=== PATIENT | female | born 1950 | race Caucasian/White ===

== ENCOUNTER → 2018-01-14 07:56 | Outpatient (CLI) | payer MEDICARE, BC, SELFPAY ==
[2018-01-14 10:37] LABS: Hemoglobin A1c 5.4 % (4.2-6.3)
[2018-01-14 10:42] LABS: Anion Gap 11 (5-15); BUN 19 mg/dL (7-18); Calcium,Total 9.4 mg/dL (8.5-10.1); Chloride 103 mmol/L (98-107); Cholesterol 213 mg/dL (200); EST Glomerular Filtration Rate 59 mL/min (>60); Est Glom Filt Rate - Afr Amer 71 mL/min (>60); Glucose 87 mg/dL (74-106); High Density Lipoprotein 42 mg/dL; Potassium 3.8 mmol/L (3.5-5.1); Sodium Level 139 mmol/L (136-145); Triglycerides 86 mg/dL; Very Low Density Lipoprotein 17 mg/dL (5-40)
== END ==
PROVIDERS: Family Provider Family Medicine; PCP Family Medicine; Visit Provider Family Medicine
DX: R73.03 Prediabetes (principal); E78.00 Pure hypercholesterolemia, unspecified
CPT/HCPCS: 36415; 80048; 80061; 83036

== ENCOUNTER → 2018-10-27 | Outpatient (CLI) | payer MEDICARE, BC, SELFPAY ==
[2018-10-27 10:19] LABS: Hemoglobin A1c 5.1 % (4.2-6.3)
[2018-10-27 10:27] LABS: Anion Gap 8 (5-15); BUN 21 mg/dL (7-18); BUN/Creat Ratio 28.2 RATIO (10-20); Chloride 105 mmol/L (98-107); Cholesterol 195 mg/dL (200); Creatinine, Serum 0.74 mg/dL (0.55-1.02); EST Glomerular Filtration Rate 82 mL/min (>60); Est Glom Filt Rate - Afr Amer 100 mL/min (>60); Glucose 81 mg/dL (74-106); High Density Lipoprotein 48 mg/dL; Potassium 4.3 mmol/L (3.5-5.1); Sodium Level 143 mmol/L (136-145); Triglycerides 70 mg/dL; Very Low Density Lipoprotein 14 mg/dL (5-40)
== END | disposition home or self-care (01) ==
LOC: MFPLAB 08:12
PROVIDERS: Family Provider Family Medicine; PCP Family Medicine; Referring Provider Family Medicine; Visit Provider Family Medicine
DX: E78.00 Pure hypercholesterolemia, unspecified (principal); R73.03 Prediabetes
CPT/HCPCS: 36415; 80048; 80061; 83036

== ENCOUNTER 2019-01-13 21:33 | Emergency (ER) | payer MEDICARE, BC, SELFPAY ==
[2019-01-13 21:34] VITALS: BP 142/91; PULSE 61; RESP 18; TEMP 37; O2SAT 99; BMI 29.0
--- NOTE | 2019-01-13 21:50 | EKG12_ITS ---
Test Reason : REPEAT CP Blood Pressure : / mmHG Vent. Rate : 054 BPM Atrial Rate : 054 BPM P-R Int : 172 ms QRS Dur : 084 ms QT Int : 468 ms P-R-T Axes : 045 -37 043 degrees QTc Int : 443 ms Sinus bradycardia Left axis deviation Abnormal ECG Confirmed by JOSEF FLOREZ ([id number]), multimedia editor THIAGO RANKIN ([id number]) on 01/18/2019 10:22:17 AM Referred By: SY Confirmed By:JOSEF FLOREZ
--- NOTE | 2019-01-13 21:50 | RAD_ITS ---
STUDY: X-RAY CHEST REASON FOR EXAM: Female, 68 years old. Chest pain TECHNIQUE: AP portable COMPARISON: March 20, 2011. FINDINGS: The lungs are clear and expanded. There is no demonstrated pleural abnormality. Normal size heart. Normal mediastinum and estefanía. Normal visualized pulmonary arteries. Normal visualized aortic arch and descending thoracic aorta. Normal visualized thoracic spine. Normal visualized ribs, clavicles, and shoulders. There is no demonstrated abnormality of the visualized soft tissue structures of the upper abdomen. RAD/Chest 1 View (Portable) IMPRESSION: Normal x-ray examination of the chest. Electronically Signed: Trung Palacio MD at 22:08 EDT , Service support ,
[2019-01-13 21:56] LABS: Absolute Lymphocyte Count 4.26 X10^3/uL (0.83-4.51); Absolute Neutrophil Count 3.5 X10^3/uL (2.0-7.7); Basophil# 0.08 X10^3/uL; Basophil% 0.9 % (0-1); Eosinophil# 0.32 X10^3/uL; Eosinophils% 3.6 % (0-5); Hematocrit 36.9 % (37-47); Hemoglobin 12.1 g/dL (12.0-15.0); Lymphocyte # 4.26 X10^3/ul (4.0); Mean Corp Hgb Conc 32.8 g/dL (32-36); Mean Corpuscular Hgb 27.6 pg (27.0-32.0); Mean Corpuscular Volume 84.2 fL (81-99); Mean Platelet Vol. 9.8 fl (6.2-12.0); Monocyte% 7.9 % (0-10); NRBC Flagged by Analyzer 0 % (0-5); Neutrophil # 3.49 X10^3/uL (2.7-7.7); Neutrophil % 39.4 % (47-70); Platelet Count 247 K/mm3 (150-450); RBC Distribution Width CV 12.2 % (11.6-14.6); Red Blood Count 4.38 M/mm3 (4.2-5.4); White Blood Count 8.9 K/mm3 (4.4-11.0)
[2019-01-13 22:12] LABS: Anion Gap 5 (5-15); BUN 29 mg/dL (7-18); BUN/Creat Ratio 31.2 RATIO (10-20); Chloride 103 mmol/L (98-107); Creatinine, Serum 0.93 mg/dL (0.55-1.02); EST Glomerular Filtration Rate 64 mL/min (>60); Est Glom Filt Rate - Afr Amer 77 mL/min (>60); Glucose 119 mg/dL (74-106); Sodium Level 138 mmol/L (136-145)
[2019-01-13 22:48] LABS: D-Dimer Quantitative (DVT/PE) 0.52 FEU/ug/m (0.27-0.49)
--- NOTE | 2019-01-13 22:50 | ED.RN ---
lab called with critical lab results. d dimer 0.52. Dr. Daley made aware no new orders at this time
[2019-01-13 23:26] VITALS: BP 135/86; PULSE 57; RESP 16; O2SAT 98
[2019-01-13] MEDS: 0.9% Normal Saline 1,000 ML 150 ML IV (23:26)
--- NOTE | 2019-01-13 23:44 | ED.DCSUM_ITS ---
History of Present Illness Chief Complaint: Chest Pain Informant: Patient Onset: Today Context: Gradual Onset Current Severity: - - Resolved Maximum Severity: Moderate Narrative: Patient presents with chest pain that lasted for approximate hour and a half. She was sitting at rest watching television when she started to get chest pressure. She states that encompass the entire anterior chest and she felt short of breath. It did not radiate to her back, neck, jaw, or arms. She tried Gas-X without improvement stating that she had had some reflux type symptoms all day. She took 2 baby aspirin with no relief and called EMS. EMS gave her 2 additional baby aspirin and her pain resolved. She was pain-free on arrival to the emergency room. Patient denies personal history of cardiac disease. Her last stress test was 8 years ago. She also had cardiac calcium scoring done in November of this year with a very low score in only the LAD. She has not noted a recent decrease in activity tolerance. - Past Medical History (1) Depression Status: Chronic Past Medical History - Allergies and Home Meds Allergies/Adverse Reactions: Allergies No Known Allergies Allergy (Verified 10/27/18 10:44) Primary Care Physician: Bradley Pedroza MD [Primary Care Provider] - Prior records reviewed: Yes Past Medical History: - - Reviewed Surgical History: surgery Lives: Spouse/ Significant Other Smoking Status: Never smoker Review of Systems General: Denies: Chills, Fever Eyes: Denies: Visual changes - bilaterally ENT: Denies: Bilateral ear pain Cardiovascular: Reports: Chest pain. Denies: Palpitations, Heart racing Respiratory: Reports: Dyspnea. Denies: Cough, Sputum Gastrointestinal: Denies: Abdominal pain, Nausea, Vomiting, Diarrhea Musculoskeletal: Denies: Myalgias, Back pain Skin: Denies: Rash Neurological: Denies: Headache Hematologic: Denies: Easy bruising Allergy: Denies: Uticaria Physical Exam Vital Signs/Narrative: Vital Signs Temp Pulse Resp BP Pulse Ox 01/13/19 23:26 57 L 16 135/86 H 98 01/13/19 21:34 98.6 F 61 18 142/91 H 99 Inital Vital Signs reviewed: Yes General: Well nourished, Well developed Head: Normocephalic Eyes: Perrl, EOMI ENT: Moist mucous membranes Neck: Supple Cardiovascular: Regular rate, Regular rhythm Respiratory: No distress, CTA bilaterally, Chest nontender Abdomen: Soft, Nontender Back: Nontender Extremities: Nontender, No edema Skin: Normal color, No rash Neurological: Alert, Oriented x3 Psychological: Normal affect Diagnostic/Tx/Re-eval Impressions Chest X-Ray 01/13/19 21:50 IMPRESSION: Normal x-ray examination of the chest. Electronically Signed: Trung Palacio MD at 22:08 EDT , Service support , 01/13/19 21:50 Chest 1 View (Portable) [RAD] Stat Laboratory Results 01/13/19 01/13/19 01/13/19 21:45 21:45 21:45 WBC 8.9 RBC 4.38 Hgb 12.1 Hct 36.9 L MCV 84.2 MCH 27.6 MCHC 32.8 RDW Std Deviation 37.0 RDW Coeff of Rebel 12.2 Plt Count 247 MPV 9.8 Immature Gran % (Auto) 0.200 Neut % (Auto) 39.4 L Lymph % (Auto) 48.0 H [place] % (Auto) 7.9 Eos % (Auto) 3.6 Baso % (Auto) 0.9 Absolute Neuts (auto) 3.5 Absolute Lymphs (auto) 4.26 Nucleated RBC % 0 D-Dimer Quant (PE/DVT) 0.52 H* Sodium 138 Potassium 4.0 Chloride 103 Carbon Dioxide 30.0 Anion Gap 5 BUN 29 H Creatinine 0.93 Estim Creat Clear Calc 52.10 Est GFR (MDRD) Af Amer 77 Est GFR (MDRD) Non-Af 64 BUN/Creatinine Ratio 31.2 H Glucose 119 H Calcium 9.0 Troponin I < 0.015 - EKG Initial EKG Interpretation: Sinus Rhythm - Sinus at 60 with no acute ischemia. - Medical Decision Making She received aspirin prior to arrival. She is had no recurrent chest pain while here. Initial enzymes are negative, but this blood work is drawn only 2 hours after the onset of her symptoms. Patient does not want to stay in the hospital overnight. We have compromised and agreed to do a 3-hour repeat EKG and blood work. If this is negative she will be discharged to home. ED Disposition - Plan for ED Patient: Referrals: Bradley Pedroza MD [Primary Care Provider] -
[2019-01-14 00:03] VITALS: BP 133/83; PULSE 53; RESP 16; O2SAT 98
--- NOTE | 2019-01-14 00:45 | EKG12_ITS ---
Test Reason : CP Blood Pressure : / mmHG Vent. Rate : 060 BPM Atrial Rate : 060 BPM P-R Int : 174 ms QRS Dur : 092 ms QT Int : 434 ms P-R-T Axes : 048 -38 055 degrees QTc Int : 434 ms Normal sinus rhythm Left axis deviation Abnormal ECG Confirmed by BILLY FISHMAN, DIEUDONNE ([id number]), purchasing expeditor THIAGO RANKIN ([id number]) on 01/18/2019 10:33:10 AM Referred By: SY Confirmed By:RBITTNI CERVANTES MD
--- NOTE | 2019-01-14 01:20 | ED.DCSUM_ITS ---
History of Present Illness Chief Complaint: Chest Pain Informant: Patient Past Medical History - Allergies and Home Meds Allergies/Adverse Reactions: Allergies No Known Allergies Allergy (Verified 10/27/18 10:44) Primary Care Physician: Bradley Pedroza MD [Primary Care Provider] - Surgical History: surgery Lives: Spouse/ Significant Other Smoking Status: Never smoker Physical Exam Vital Signs/Narrative: Vital Signs Temp Pulse Resp BP Pulse Ox 01/14/19 00:03 53 L 16 133/83 H 98 01/13/19 23:26 57 L 16 135/86 H 98 01/13/19 21:34 98.6 F 61 18 142/91 H 99 Diagnostic/Tx/Re-eval Abnormal Lab Results 01/13/19 01/13/19 01/13/19 21:45 21:45 21:45 WBC 8.9 RBC 4.38 Hgb 12.1 Hct 36.9 L MCV 84.2 MCH 27.6 MCHC 32.8 RDW Std Deviation 37.0 RDW Coeff of Rebel 12.2 Plt Count 247 MPV 9.8 Immature Gran % (Auto) 0.200 Neut % (Auto) 39.4 L Lymph % (Auto) 48.0 H [place] % (Auto) 7.9 Eos % (Auto) 3.6 Baso % (Auto) 0.9 Absolute Neuts (auto) 3.5 Absolute Lymphs (auto) 4.26 Nucleated RBC % 0 D-Dimer Quant (PE/DVT) 0.52 H* Sodium 138 Potassium 4.0 Chloride 103 Carbon Dioxide 30.0 Anion Gap 5 BUN 29 H Creatinine 0.93 Estim Creat Clear Calc 52.10 Est GFR (MDRD) Af Amer 77 Est GFR (MDRD) Non-Af 64 BUN/Creatinine Ratio 31.2 H Glucose 119 H Calcium 9.0 Troponin I < 0.015 01/14/19 00:36 WBC RBC Hgb Hct MCV MCH MCHC RDW Std Deviation RDW Coeff of Rebel Plt Count MPV Immature Gran % (Auto) Neut % (Auto) Lymph % (Auto) [place] % (Auto) Eos % (Auto) Baso % (Auto) Absolute Neuts (auto) Absolute Lymphs (auto) Nucleated RBC % D-Dimer Quant (PE/DVT) Sodium Potassium Chloride Carbon Dioxide Anion Gap BUN Creatinine Estim Creat Clear Calc Est GFR (MDRD) Af Amer Est GFR (MDRD) Non-Af BUN/Creatinine Ratio Glucose Calcium Troponin I < 0.015 - Medical Decision Making Patient signed out to me follow-up on repeat troponin. Results negative, repeat EKG unchanged sinus rate of 54 with no acute changes. Left axis deviation. Patient remains symptom-free. D-dimer was negative for age-adjusted. She will follow-up with outpatient physicians for further testing as needed. Signs and symptoms discussed return. All questions answered. ED Disposition - Plan for ED Patient: Disposition: Home or Assisted Living Diagnosis: Chest pain Instructions: CHEST PAIN, Uncertain Cause Referrals: Bradley Pedroza MD [Primary Care Provider] - Ray Abbasi MD [STAFF PHYSICIAN] - 3-5 Days
[2019-01-14 01:28] VITALS: BP 142/83; PULSE 53; RESP 18; O2SAT 99
== END 2019-01-14 01:29 | disposition home or self-care (01) ==
PROVIDERS: Emergency Provider Emergency Medicine; Family Provider Family Medicine; PCP Family Medicine
DX: R07.89 Other chest pain (principal); F32.9 Major depressive disorder, single episode, unspecified; Z79.899 Other long term (current) drug therapy
CPT/HCPCS: 71045; 80048; 84484; 85025; 85379; 93005; 96360; 96361; 99285; J7030; A4216

== ENCOUNTER → 2020-11-30 10:57 | Outpatient (CLI) | payer MEDICARE, BC, SELFPAY ==
[2019-02-10 13:18] VITALS: BMI 28.1
== END ==
PROVIDERS: PCP Family Medicine; Visit Provider Family Medicine
DX: B34.9 Viral infection, unspecified (principal)
CPT/HCPCS: 87426; 87633; 87635; U0005; U0003

== ENCOUNTER → 2021-03-18 07:57 | Outpatient (CLI) | payer MEDICARE, BC, SELFPAY ==
[2019-02-10 13:18] VITALS: BMI 28.1
--- NOTE | 2021-03-18 08:01 | CT_ITS ---
STUDY: CT SCAN LOWER EXTREMITY LEFT REASON FOR EXAM: Female, 71 years old. PRE OP.[facility] protocol. RADIATION DOSAGE (If Supplied By Facility): CTDIvol = ( 26.98 ) mGy, DLP = ( 1618.63 ) mGycm. Individualized dose optimization techniques were used for this CT.? TECHNIQUE: Multiple axial tomographic images of the left hip joint, left knee joint and left ankle joint were obtained. Coronal and sagittal reconstruction was obtained as well. COMPARISON: None. FINDINGS: Imaging of the left hip joint was obtained. No significant abnormality is seen. Imaging of the left knee joint was obtained. Moderate to marked degree of joint space narrowing involving the medial compartment of the knee joint. Degenerative spur formation is seen at the level of both femoral condyles as well as the medial and lateral tibial plateau. This evidence of a small joint effusion. Imaging of the ankle joint was obtained. No abnormality is seen. CT/Extremity Lower without Contra IMPRESSION: Moderate to marked degree of joint space narrowing involving the medial compartment of the knee joint. Small joint effusion. Electronically Signed: Shayne Rogel MD at 9:52 EDT , Service support ,
== END ==
PROVIDERS: PCP Family Medicine; Referring Provider Orthopaedic Surgery; Visit Provider Orthopaedic Surgery
DX: M17.12 Unilateral primary osteoarthritis, left knee (principal)
CPT/HCPCS: 73700

== ENCOUNTER 2021-04-01 05:23 | Day surgery (SDC) | payer MEDICARE, BC, SELFPAY ==
[2019-02-10 13:18] VITALS: BMI 28.1
--- NOTE | 2021-03-18 08:05 | EKG12_ITS ---
Test Reason : PREOP Blood Pressure : / mmHG Vent. Rate : 070 BPM Atrial Rate : 070 BPM P-R Int : 160 ms QRS Dur : 082 ms QT Int : 368 ms P-R-T Axes : 057 -43 028 degrees QTc Int : 397 ms Normal sinus rhythm Left axis deviation Abnormal ECG Confirmed by EDIS FISHMAN, MARIO ([id number]), photographic editor ESCOBAR MONTEMAYOR ([id number]) on 03/19/2021 9:51:10 AM Referred By: Kaushik Coughlin Confirmed By:MARIO RANDHAWA MD
[2021-03-18 09:27] LABS: Absolute Lymphocyte Count 3.14 X10^3/uL (0.83-4.51); Absolute Neutrophil Count 5.9 X10^3/uL (2.0-7.7); Basophil# 0.09 X10^3/uL; Basophil% 0.9 % (0-1); Eosinophil# 0.23 X10^3/uL; Eosinophils% 2.3 % (0-5); Hematocrit 42.2 % (37-47); Hemoglobin 13.6 g/dL (12.0-15.0); Lymphocyte # 3.14 X10^3/ul (0.83-4.51); Lymphocyte % 30.9 % (19-41); Mean Corp Hgb Conc 32.2 g/dL (32-36); Mean Corpuscular Hgb 27.8 pg (27.0-32.0); Mean Corpuscular Volume 86.3 fL (81-99); Mean Platelet Vol. 11.1 fl (6.2-12.0); Monocyte# 0.77 X10^3/uL; Monocyte% 7.6 % (0-10); NRBC Flagged by Analyzer 0 % (0-5); Neutrophil # 5.89 X10^3/uL (2.7-7.7); Platelet Count 292 K/mm3 (150-450); RBC Distribution Width CV 13.1 % (11.6-14.6); RBC Distribution Width SD 40.9 fl (35.1-43.9); Red Blood Count 4.89 M/mm3 (4.2-5.4); White Blood Count 10.2 K/mm3 (4.4-11.0)
[2021-03-18 09:58] LABS: Anion Gap 6 (5-15); BUN 20 mg/dL (7-18); Calcium,Total 9.2 mg/dL (8.5-10.1); Chloride 107 mmol/L (98-107); Creatinine, Serum 0.83 mg/dL (0.55-1.02); EST Glomerular Filtration Rate 72 mL/min (>60); Est Glom Filt Rate - Afr Amer 87 mL/min (>60); Glucose 114 mg/dL (74-106); Sodium Level 140 mmol/L (136-145)
[2021-03-18 10:08] LABS: Hemoglobin A1c 5.6 % (3.8-5.6)
[2021-04-01] VITALS (9 sets, daily range): BP systolic 120–168; BP diastolic 69–98; PULSE 68–103; RESP 16–18; TEMP 36.1–37.6; O2SAT 98–100; BMI 38.2
--- NOTE | 2021-04-01 | KNEE_PTH ---
PATIENT: JENNIFER NOEL LOC: [facility] U#:[id number] AGE/SX: 71/F ROOM: RE04/01/[address]: Dr. Kaushik Coughlin DO : 1950 BED: DIS: 04/01/2021 SPEC #: [id number] RECD: 04/01/21 12:43 STATUS: SERGIO REQ #: [id number] CR: 04/01/21 00:[address]: Kaushik Coughlin DEPT: SURGICAL PATHOLOGY RECD BY: Louis Marks ENTERED: 04/01/21 12:43 SP TYPE: TOTAL KNEE OTHR DR: Dr. Ann Stevens MD Tissues: Knee, NOS Procedures: Decalcification bone/plaque Surgery Specimen Level IV HEADER OPERATION: ERAS, total knee replacement robotic arm assist PRE-OP DIAGNOSIS: Unilateral primary osteoarthritis left knee TISSUE SUBMITTED: Bone and soft tissue left knee MICROSCOPIC DIAGNOSIS Bone and tissue of left knee, total knee resection: Severe degenerative joint disease. AM:[email or web address] 04/04/21 MICROSCOPIC DESCRIPTION Slides are reviewed. GROSS DESCRIPTION Received is one container designated bone and soft tissue left knee. The specimen consists of multiple fragments of webster-yellow bone measuring in aggregate 10 x 8 x 3.5 cm. No soft tissue is identified. A number of bony fragments contain articular surfaces consistent with tibial plateau and femoral condyle and displaying prominent osteophyte formation, eburnation, and bone erosion. Histology Specialist sections are submitted in two cassettes after decalcification. / SJ:sukhjinder 04/01/21 TC:5 CPT: 60549, 86667
[2021-04-01] MEDS: Acetaminophen 500 MG Tablet 1000 MG PO ×2 (06:13→14:10)
[2021-04-01] MEDS: Gabapentin 600 MG Tablet PO (06:13)
[2021-04-01] MEDS: Lactated Ringers 1,000 ML 15 ML IV (06:25)
[2021-04-01 06:41] LABS: Bedside Glucose 128 mg/dL (70-110)
[2021-04-01] MEDS: Cefazolin 2 GM in 0.9% Normal Saline 100 ML IV (08:02)
--- NOTE | 2021-04-01 09:27 | RAD_ITS ---
STUDY: X-RAY - LEFT KNEE REASON FOR EXAM: Female, 71 years old. tkr -- in PACU TECHNIQUE: 2 view(s) of the knee. COMPARISON: None. FINDINGS: Status post total knee arthroplasty. Surgical hardware intact/well aligned. No acute complications. Postoperative soft tissues with staple line. RAD/Knee 1 or 2 Views IMPRESSION: Uncomplicated left knee arthroplasty Electronically Signed: Bala Yeh DO at 10:34 EST Tel , Service support ,
--- NOTE | 2021-04-01 10:00 | PCM.OPRPT ---
Report of Operation Date of Procedure: 04/01/21 Pre-Operative Diagnosis: OA left knee Post-Operative Diagnosis: same Surgery/Procedure Performed:: Left TKR Description of Surgical Findings:: Report of Operation Date of Procedure: 04/01/21 Preoperative Diagnosis: [left ] knee primary osteoarthritis Postoperative Diagnosis: [ left ] knee primary osteoarthritis Operation: Robotic Assisted Knee Total Arthroplasty, [ left ] knee Surgeon: Dr Kaushik Coughlin DO Director Of Instrumental Music: Joseluis Price PA-C Anesthesia: spinal Anesthesiologist: Sridhar Belcher M.D. Findings: Stable knee with good patella tracking Specimen(s): Bony cuts Complications: No intraoperative complications Estimated Blood Loss: 20 cc IV Fluids: 1000 cc crystalloid Implants Used: 1. [place] [employer] press-fit CR size 4 femur 2. [place] [employer] size 4 tibia 3. 32 mm patella 4. 9 mm CS polyethylene Brief History Operative Indications: [ (71 y/o female) ] with history of [ left ] knee osteoarthrosis with radiographic findings with loss of joint space, osteophyte formation and subchondral sclerosis. Failed conservative measures as mentioned in the H&P. Discussion of total knee arthroplasty as well as risk and benefits were discussed with the patient including but not limited to blood loss, DVTs, PEs, neurovascular damage, general risk of anesthesia including loss of life, and stiffness or instability were also discussed with the patient. Patient demonstrated understanding and was able to sign informed consent. Procedure: On the date of procedure, patient's [ left ] lower extremity was marked in the preoperative area. The patient was then taken back to the operating room where that patient was placed on the table in the supine position. All bony prominences were identified and well-padded. Anesthesia assumed control of the C-spine and airway throughout the remainder of the procedure. A tourniquet was placed on the [left ] upper thigh and the leg was prepped in a sterile fashion. The surgeon then scrubbed at this time. Upon reentering the room, the left lower extremity was draped in a standard orthopedic fashion. A timeout was then called and everyone agreed upon the side, the site, the procedure to be performed, patient's identity and antibiotics given. Esmarch bandage was used to exsanguinate the extremity and the tourniquet was placed up to 250 mmHg with the knee in flexion. A midline skin incision was made and a sharp dissection was taken down through skin, subcutaneous tissue and fat. The standard medial parapatellar incision was made and the patella was subluxed laterally. An appropriate deep MCL release was done and the fat pad was resected. Our attention was then directed to the patella. The patella was everted and a flat resection was made. The knee was then flexed up and 2 femoral pins were placed inside the incision and 2 tibial pins were placed outside the incision in the medial tibia bicortically. Once this was completed, the 2 checkpoints in the femur and tibia were placed. Knee was then flexed up and the bony landmarks were registered. Once the was completed, the knee taken through range of motion and manually stressed allowing us to plan for an appropriate tibial cut. The robotic arm was brought into the field sterilely and checkpoint and saw were registered. Based on the patient's deformity, the tibial cut was made in [neutral ]. At this time, the tensioner was then placed in the joint and ligament tension was checked at 90 degrees and full extension. Based on the patient's ligamentous tension, appropriate adjustments were made to the operative plan and ligament releases were done. Once we were happy with our operative plan with balanced flexion and extension gaps, our attention was directed to the femur. The robot was brought into the field sterilely and registered. Posterior condylar cuts, anterior chamfer cuts and anterior cuts were appropriately made for a [ size 4 ] femur. When these were completed, the saws were switched out in the distal femoral and posterior chamfer cuts were made. Protecting the soft tissue throughout this time. A [ size 4 ] base plate was selected. The knee was flexed to 90 degrees and soft tissues and posterior osteophytes were removed from the joint. 40 cc of the periarticular injection was injected into the posterior medial corner of the joint. The appropriate trials were then placed on the femur and tibia. A trial polyethylene was trialed to ensure proper balancing and stability of the knee. The appropriate tibial internal rotation was then marked with a bovie. Our attention was then directed to the patella. The lug holes were drilled and the patella trial was placed. Patellar tracking was checked and deemed appropriate. Once we were happy, lug holes were drilled for the femur and trial components were removed. The tibia was subluxed and pinned into place and the keel was punched and drilled appropriately. Final components were verified and opened. The wound was copiously irrigated with normal saline. The components were impacted into place with the tibia, femur and finally the patella. The trial poly component was placed and the knee was placed in full extension. The tracking, alignment and balance were verified and a [ 9 mm CS ] polyethylene component was placed. Once the final components were placed an Irrisept lavage was performed and the wound was copiously irrigated with normal saline solution and the periarticular injection was given. the wound was closed in a layer-dean fashion using #1 vicryl interrupted sutures for the arthrotomy, 2-0 interrupted vicryl suture for the subcuticular layer and maurizio for final skin closure. A sterile compressive dressing was then placed. The patient was then awakened from anesthesia, transferred to the [facility] and transferred to the PACU for recovery. My physician assistant corporation counsel was a vital part of this case. He was important in appropriate retraction during the case, and protection of soft tissues during bony cuts. His intimate knowledge of the case and my steps aided in safe and expedient completion of the procedure as well as appropriate position of the leg during the case. He was also vital in assisting with closure under my direct supervision. Due to the complexity of this case, robotic arm was used to assist in the surgery to improve accuracy and clinical outcomes. Post-op Plan: DVT ppx; ASA 81 mg BID, thigh high compression stockings Follow up: in office in 2 weeks for wound check PT: to start POD #0 at hospital, outpatient PT should be arranged. Preoperative antibiotic: Ancef 2 grams IV Kaushik Coughlin DO Surgeon: Kaushik Coughlin yield clerk: Joseluis Price Type of Anesthesia: Spinal Anesthesiologist: Sridhar Belcher Estimated Blood Loss (mL): 20 cc Fluids Replaced: 1000 cc crystalloid Admit VTE Documentation VTE Present on Admission: No VTE Mechan Device Prophylaxis: SCD's and Thigh High JET Hose VTE Pharm Prophylaxis ordered?: Yes
[2021-04-01] MEDS: Lactated Ringers 1,000 ML 125 ML IV (11:00)
[2021-04-01] MEDS: oxyCODONE 5 MG Tablet PO (11:41)
== END 2021-04-01 14:21 | disposition home or self-care (01) ==
LOC: SDC 05:25 → AC 06:08
PROVIDERS: Anesthesiology; PCP Family Medicine; Referring Provider Orthopaedic Surgery; Visit Provider Orthopaedic Surgery
PROC: 0SRD0JZ Replacement of Left Knee Joint with Synthetic Substitute, Open Approach (ICD-10-PCS; CPT 27447; principal; 2021-04-01 07:30)
DX: M17.12 Unilateral primary osteoarthritis, left knee (principal); F32.A Depression, unspecified; E66.9 Obesity, unspecified; Z68.41 Body mass index [BMI] 40.0-44.9, adult; Z79.899 Other long term (current) drug therapy
CPT/HCPCS: 01402; 27447; 64447; 76942; S2900; 36415; 73560; 80048; 82962; 83036; 83735; 85025; 87077; 87081; 88305; 88311; 93005; 97162; C1776; J7120; J2405

== ENCOUNTER → 2022-02-05 | Outpatient (CLI) | payer MEDICARE, BC, SELFPAY ==
--- NOTE | 2022-02-05 07:43 | BI_ITS ---
MAMMOGRAPHY - BILATERAL SCREENING 3-D TOMOSYNTHESIS REASON FOR EXAM: Female, 71 years old. SCREENING PERTINENT HISTORY: No significant family history. TECHNIQUE: 2-D mammograms and 3-D Tomosynthesis of the breast (s) were performed. CAD was performed. COMPARISON: None. FINDINGS: The breast composition is composed of scattered fibroglandular density. Scattered benign calcifications are seen. No dense spiculated masses or suspicious microcalcifications are identified. No architectural distortion is identified. There is no skin thickening or retraction. There has been no significant change since the prior study. BI/SCRN MAMM (CAD)W/GENEVA BILAT IMPRESSION: No mammographic signs of malignancy. Routine yearly mammograms recommended. ASSESSMENT CATEGORY: BIRADS Category 1: Negative. A letter regarding these results will be sent to the patient by the facility within 30 days. FOLLOW UP RECOMMENDATION: Yearly follow up mammogram recommended. (A) Approximately 10% of breast cancers are not detected by mammography. A normal mammogram should not delay biopsy of a clinically suspicious abnormality. Electronically Signed: Cody Faye MD at 8:46 EDT ,
== END | disposition home or self-care (01) ==
LOC: OPBI 07:39
PROVIDERS: PCP Family Medicine; Visit Provider Family Medicine
DX: Z12.31 Encounter for screening mammogram for malignant neoplasm of breast (principal)
CPT/HCPCS: 77063; 77067

== ENCOUNTER → 2023-04-08 | Outpatient (CLI) | payer MEDICARE, BC, SELFPAY ==
--- NOTE | 2023-04-08 13:37 | BI_ITS ---
MAMMOGRAPHY - BILATERAL SCREENING REASON FOR EXAM: Female, 73 years old. Routine annual screening examination. PERTINENT HISTORY: Father with breast cancer. History of bilateral stereotactic breast biopsies. TECHNIQUE: Digital bilateral breast geneva (3D mammographic acquisition) in the CC and MLO projections. 2-D mediolateral oblique (MLO) and craniocaudad (CC) views of both breasts were obtained. CAD: Full Field Digital Mammography with Computer Added Detection was performed. COMPARISON: Comparison is made with prior examination of February 05, 2022 and May 21, 2010. FINDINGS: Breast Composition: There are scattered areas of fibroglandular density. There are no dominant masses or suspicious calcifications. A tissue clip marker is seen in the upper lateral aspect of the left breast. Stable small benign appearing bilateral axillary lymph nodes. No other significant abnormalities are identified. There has been no significant change since the prior study. BI/SCRN MAMM (CAD)W/GENEVA BILAT IMPRESSION: Stable bilateral screening mammogram. Yearly follow-up mammogram recommended. (A) ASSESSMENT CATEGORY: BIRADS Category 2: Benign. A letter regarding these results will be sent to the patient by the facility within 30 days. Approximately 10% of breast cancers are not detected by mammography. A normal mammogram should not delay biopsy of a clinically suspicious abnormality. [id number] Electronically Signed: Shayne Rogel MD at 15:34 EST ,
== END | disposition home or self-care (01) ==
LOC: OPBI 13:35
PROVIDERS: PCP Family Medicine; Referring Provider Nurse Practitioner Family; Visit Provider Nurse Practitioner Family
DX: Z12.31 Encounter for screening mammogram for malignant neoplasm of breast (principal)
CPT/HCPCS: 77063; 77067

== ENCOUNTER → 2023-09-29 | Outpatient (CLI) | payer MEDICARE, BC, SELFPAY ==
[2023-09-29 10:32] LABS: Absolute Lymphocyte Count 3.19 X10^3/uL (0.83-4.51); Basophil# 0.08 X10^3/uL; Basophil% 0.8 % (0-1); Eosinophil# 0.34 X10^3/uL; Eosinophils% 3.6 % (0-5); Hematocrit 42.5 % (37-47); Hemoglobin 13.7 g/dL (12.0-15.0); Lymphocyte # 3.19 X10^3/ul (0.83-4.51); Lymphocyte % 33.8 % (19-41); Mean Corp Hgb Conc 32.2 g/dL (32-36); Mean Corpuscular Hgb 27.2 pg (27.0-32.0); Mean Corpuscular Volume 84.5 fL (81-99); Mean Platelet Vol. 10.1 fl (6.2-12.0); Monocyte# 0.76 X10^3/uL; Monocyte% 8.1 % (0-10); NRBC Flagged by Analyzer 0 % (0-5); Neutrophil # 5.04 X10^3/uL (2.7-7.7); Neutrophil % 53.5 % (47-70); Platelet Count 319 K/mm3 (150-450); RBC Distribution Width SD 39.6 fl (35.1-43.9); Red Blood Count 5.03 M/mm3 (4.2-5.4); White Blood Count 9.4 K/mm3 (4.4-11.0)
[2023-09-29 11:23] LABS: ALB/GLOB Ratio 0.9 RATIO (0.9-2.4); AST(SGOT) 10 U/L (15-37); Alanine Aminotransfer ALT/SGPT 14 U/L (13-56); Albumin, Serum 3.5 g/dL (3.2-5.0); Alkaline Phosphatase 77 U/L (45-117); Anion Gap 6 (5-15); BUN 14 mg/dL (7-18); BUN/Creat Ratio 18.7 RATIO (10-20); Calcium,Total 9.4 mg/dL (8.5-10.1); Chloride 106 mmol/L (98-107); Creatinine, Serum 0.75 mg/dL (0.55-1.02); EST Glomerular Filtration Rate 81 mL/min (>60); Est Glom Filt Rate - Afr Amer 97 mL/min (>60); Glucose 100 mg/dL (74-106); Magnesium 2.1 mg/dL (1.6-2.6); Potassium 4.2 mmol/L (3.5-5.1); Protein, Total 7.5 g/dL (6.4-8.2); Sodium Level 138 mmol/L (136-145)
[2023-09-29 13:08] LABS: Hemoglobin A1c 5.4 % (3.8-5.6)
== END | disposition home or self-care (01) ==
LOC: MFPLAB 09:08
PROVIDERS: PCP Family Medicine; Visit Provider Family Medicine
DX: R42 Dizziness and giddiness (principal); R73.03 Prediabetes
CPT/HCPCS: 36415; 80053; 83036; 83735; 85025